=== PATIENT | male | born 1945 | race Caucasian/White ===

== ENCOUNTER 2019-11-03 07:59 | Emergency (ER) | payer MEDICARE ==
[2019-11-03 08:06] VITALS: BP 151/78
--- NOTE | 2019-11-03 08:13 | ED Integumentary General ---
General Chief Complaint: Bite-Animal/Human/Insect Stated Complaint: STUNG BY WASP ON RT HAND Source: patient History of Present Illness Date Seen by Provider: Nov 03, 2019 Time Seen by Provider: 08:08 Initial Comments 74-year-old male presents with swelling of his right hand. Patient reports he was stung by a wasp yesterday afternoon sometime. That this morning when he awoke his hand was swollen. It itched him throughout the night. He has no fevers chills nausea vomiting diarrhea wheezing and shortness of breath, headache or other systemic complaints. Patient took maybe a couple Benadryl yesterday. He has no other systemic complaints. Allergies and Home Medications Allergies Coded Allergies: No Known Drug Allergies (Unverified , 11/03/19) Patient Home Medication List Home Medication List Reviewed: Yes Review of Systems Review of Systems Constitutional: No chills, No fever Respiratory: No cough, No short of breath Cardiovascular: No chest pain, No palpitations Gastrointestinal: No diarrhea, No nausea, No vomiting Skin: see HPI Hematologic/Lymphatic: No Symptoms Reported Past [id number] Hx Past Med/Social Hx: Reviewed Nursing Past Med/Soc Hx Physical Exam Vital Signs Vital Signs - First Documented 11/03/19 08:06 Temp 36.4 Pulse 73 Resp 16 B/P (MAP) 151/78 (102) Pulse Ox 95 Capillary Refill : General Appearance: WD/WN, no apparent distress Cardiovascular: normal peripheral pulses, regular rate, rhythm Respiratory: lungs clear, normal breath sounds Gastrointestinal: non tender, soft Neurologic/Psychiatric: alert, normal mood/affect, oriented x 3 Skin: other (mild erythema) Skin Problem Location: upper extremities Skin Problem Character: other (swelling to the right hand and right wrist) Progress/Results/Core Measures Results/Orders My Orders Orders - KELLI DALY DO Diphenhydramine Injection (Benadryl Inje (11/03/19 08:20) Methylprednisolone Sod Succ (Solu-Medrol (11/03/19 08:20) Vital Signs/I&O 11/03/19 08:06 Temp 36.4 Pulse 73 Resp 16 B/P (MAP) 151/78 (102) Pulse Ox 95 Departure Impression Primary Impression: Accidental wasp sting Disposition: 01 HOME, SELF-CARE Condition: Stable Departure-Patient Inst. Patient Instructions: Insect Bites and Stings (DC) Add. Discharge Instructions: Benadryl 50 mg every 6-8 hours as needed Cool rag or ice to affected hand Follow-up with your primary care provider if symptoms continue to worsen. All discharge instructions reviewed with patient and/or family. Voiced understanding. KELLI DALY DO Nov 03, 2019 08:13
--- OUTSIDE RECORDS SUMMARY | 2019-11-03 08:13 | XMS REPORT | Continuity of Care Document ---
Author Organization Unknown Address Unknown Phone Unavailable Allergies There is no data. Medications There is no data. Problems There is no data. Procedures There is no data. Results Test Result Range A1C - 01/03/19 09:10 HEMOGLOBIN A1c 6.8 % of total Hgb <5.7 VITAMIN D, 25-H - 08/11/19 10:12 VITAMIN D,25-OH,TOTAL,IA 26 ng/mL 30-10 0 A1C - 08/11/19 10:12 HEMOGLOBIN A1c 7.1 % of total Hgb <5.7 Encounters ACCT No. Visit Date/Time Discharge Status Pt. Type Provider Facility Loc./Unit Complaint [id number] 08/19/2019 09:00:00 08/19/2019 23:59: 59 [facility] Outpatient [facility] [id number] 08/11/2019 09:20:00 Document Registration [id number] 01/03/2019 08:00:00 Document Registration
[2019-11-03] MEDS ORDERED: methylPREDNISolone 125 MG (Solu-MEDROL) VIAL IM STA (08:20)
[2019-11-03] MEDS ORDERED: diphenhydrAMINE 50 MG/ML INJ (BENADRYL) IM STA (08:20)
== END 2019-11-03 08:55 | disposition home or self-care (01) ==
LOC: ER FS 08:02
DX: T63.461A Toxic effect of venom of wasps, accidental (unintentional), initial encounter (principal)
CPT/HCPCS: 99284